=== PATIENT | female | born 1980 | race Caucasian/White ===

== ENCOUNTER 2017-10-22 09:58 | Day surgery (SDC) | payer OTHER ==
[2017-10-22] MEDS ORDERED: Marcaine 0.5% SDV 10 ML IJ ONE (09:59)
[2017-10-22] MEDS ORDERED: Xylocaine-Mpf 2% 5 Ml Vial IJ ONE (09:59)
[2017-10-22] MEDS ORDERED: Ketamine HCl 50 MG/ML IV ONE (09:59)
[2017-10-22] MEDS ORDERED: DIPRIVAN 200 MG/20 ML IV ONE (09:59)
[2017-10-22] MEDS ORDERED: Lactated Ringers 1,000 ML IV ONE (09:59)
--- NOTE | 2017-10-22 12:03 | XRAY ---
Indication: Left L4-L5 MBB. Intraoperative fluoroscopy was provided for 20 seconds. Single digital spot image submitted for interpretation demonstrates posterior spinal needle tips projecting over the expected course of the left L4 and L5 nerve roots. Correlate with intraoperative findings/report.
--- NOTE | 2017-10-22 12:05 | XRAY ---
20 seconds fluoroscopy time in surgery for left L4-5 MBB.
--- NOTE | 2017-10-23 10:03 | OP ---
DATE OF PROCEDURE: 10/22/2017 1104 SURGEON: Marian Luu D.O. PREOPERATIVE DIAGNOSIS: Degenerative lumbar spine disease, spondylosis, low back pain. POSTOPERATIVE DIAGNOSIS: Degenerative lumbar spine disease, spondylosis, low back pain. PROCEDURE PERFORMED: Left L5-L4 medial branch block under fluoroscopic guidance. DESCRIPTION OF THE PROCEDURE: The patient was taken to the operating room and placed in the prone position on the table. Skin at the injection site was prepped and draped in sterile fashion. Under fluoroscopy, bony anatomy of the targeted injection site was visualized. Induction agent was given as per anesthesia while vital signs were monitored. Local anesthetic agent of 0.5 cc of 1% lidocaine preservative free was introduced to anesthetize the skin and the subcutaneous tissue through the injection site. Under fluoroscopic guidance, a #20 gauge standard spinal needle was advanced into the target medial branch through the oblique approach. The preservative free 0.5 cc of 1% lidocaine and 0.5 cc of 0.25% Marcaine were injected into each of the targeted medial branch nerve. After the needle was being removed, the skin was cleansed with alcohol and then a bandage was applied. No complications or adverse consequences were observed. The patient was returned to the holding area until stabilized before discharge to home. After the procedure the residual pain is 2 out of 10 and there is no muscle weakness after the procedure. The patient was ambulating well. The patient will be followed up within ten days after the injection for re-evaluation.
== END 2017-10-22 11:40 | disposition home or self-care (01) ==
LOC: SDC-PAIN 09:58
PROVIDERS: ATTEND Internal Medicine
DX: M46.96 Unspecified inflammatory spondylopathy, lumbar region (principal); M51.36 Other intervertebral disc degeneration, lumbar region; Z79.891 Long term (current) use of opiate analgesic
CPT/HCPCS: 64493; 64494; 72020; 76000; 84703; J2704

== ENCOUNTER 2017-12-10 13:17 | Day surgery (SDC) | payer OTHER ==
[2017-12-10] MEDS ORDERED: DIPRIVAN 200 MG/20 ML IV ONE (13:18)
[2017-12-10] MEDS ORDERED: Xylocaine 1% Vial 30 ML PF IJ ONE (13:18)
[2017-12-10] MEDS ORDERED: Marcaine 0.5% SDV 10 ML IJ ONE (13:18)
[2017-12-10] MEDS ORDERED: Lactated Ringers 1,000 ML IV ONE (14:53)
--- NOTE | 2017-12-10 16:26 | XRAY ---
Indication: Left L3-L5 MBB. Intraoperative fluoroscopy was provided for 1 minute 50 seconds. 4 digital spot images submitted for interpretation demonstrates posterior spinal needle tips projecting over the expected course of the left L3, L4, and L5 nerve roots. Correlate with intraoperative findings/report.
--- NOTE | 2017-12-10 16:30 | XRAY ---
1 minute and 50 seconds fluoroscopy time in surgery for left L3-5 MBB.
--- NOTE | 2017-12-11 08:55 | OP ---
AMENDED REPORT: DATE OF PROCEDURE: 12/10/2017 1437 SURGEON: Marian Luu D.O. PREOPERATIVE DIAGNOSIS: Degenerative lumbar spine disease, spondylosis, low back pain. POSTOPERATIVE DIAGNOSIS: Degenerative lumbar spine disease, spondylosis, low back pain. PROCEDURE PERFORMED: Left L5, L4 and L3 medial branch blocks under fluoroscopic guidance. DESCRIPTION OF THE PROCEDURE: The patient was taken to the operating room and placed in the prone position on the table. Skin at the injection site was prepped and draped in sterile fashion. Under fluoroscopy, bony anatomy of the targeted injection site was visualized. Induction agent was given as per anesthesia while vital signs were monitored. Local anesthetic agent of 30 cc of 1% lidocaine preservative-free and the medication used for this procedure of nerve block includes 1 cc of 0.5% preservative-free Marcaine was introduced to anesthetize the skin and the subcutaneous tissue through the injection site. Under fluoroscopic guidance, a #20 gauge standard spinal needle was advanced into the target medial branch through the oblique approach. After the needle was being removed, the skin was cleansed with alcohol and then a bandage was applied. No complications or adverse consequences were observed. The patient was returned to the holding area until stabilized before discharge to home. Preoperative pain level is 5 out of 10 and postoperative pain level is 3 out of 10. The patient will be followed up within ten days after the injection for re-evaluation.
== END 2017-12-10 15:26 | disposition home or self-care (01) ==
LOC: SDC-PAIN 13:17
PROVIDERS: ATTEND Internal Medicine
DX: M46.96 Unspecified inflammatory spondylopathy, lumbar region (principal); M54.5 Low back pain; M51.36 Other intervertebral disc degeneration, lumbar region; Z79.891 Long term (current) use of opiate analgesic
CPT/HCPCS: 64493; 64494; 64495; 72020; 77003; 84703; J2001; J2704

== ENCOUNTER 2017-12-31 13:12 | Day surgery (SDC) | payer OTHER ==
[~2017-12-31 13:12] MED LIST: Lactated Ringers 1,000 ML IV ONE
[2017-12-31] MEDS ORDERED: DIPRIVAN 200 MG/20 ML IV ONE ×2 (13:13→14:58)
[2017-12-31] MEDS ORDERED: XYLOCAINE-MPF 1% 5ML SDV IJ ONE (13:13)
[2017-12-31] MEDS ORDERED: Marcaine Mpf 0.5% Vial 30 Ml IJ ONE (13:13)
--- NOTE | 2017-12-31 19:24 | XRAY ---
Exam: Single view spine from 12/31/2017. Comparison: Single view spine from 12/10/2017. Indication: Left L4-S1 RFA. Findings: 1 minute 15 seconds intraoperative fluoroscopy time was utilized with the C-arm. 3 PA images and a lateral image are submitted. The needle tips are seen in the projection of the expected left L3, L4, and L5 nerve roots on the PA images. However, on the lateral image, the needle tips appear to be posterior to this near the respective L3-L4, L4-L5, and L5-S1 facet joints. Please correlate with intraoperative findings/report.
--- NOTE | 2018-01-01 08:15 | XRAY ---
1 minute and 15 seconds fluoroscopy time in surgery for left L4-S1 RFA.
--- NOTE | 2018-01-01 09:35 | OP ---
DATE OF PROCEDURE: 12/31/2017 1439 SURGEON: Marian Luu D.O. PREOPERATIVE DIAGNOSES: Degenerative lumbosacral spine disease, spondylosis, low back pain. POSTOPERATIVE DIAGNOSES: Degenerative lumbosacral spine disease, spondylosis, low back pain. PROCEDURE PERFORMED: Left L5, L4, L3 medial branch radiofrequency ablation under fluoroscopic guidance. The medication used for this procedure is 3 cc preservative-free 0.5% Marcaine. The local anesthetic agent used is preservative-free 9 cc of 1% lidocaine. DESCRIPTION OF PROCEDURE: The patient was taken to the operating room and laid in the prone position on the table. The skin over the injection site was prepped and draped in sterile fashion. Under fluoroscopy bony anatomy of the target injection site was visualized. Induction agent was given as per anesthesia while vital signs were monitored. Local anesthetic agent was introduced to anesthetize the skin and the subcutaneous tissue through the injection site. Under fluoroscopic guidance a standard size spinal needle with cannula was advanced into the target medial branch nerve as per standard protocol. Before the radiofrequency ablation motor and sensory nerve testing was conducted as per protocol. Under the safety guidance which ensured no motor nerves being involved, radiofrequency ablation was conducted at 80 degrees C for 90 seconds as per standard protocol. After the spinal needle with the cannula was removed the skin was cleansed with alcohol and then a bandage was applied. No complications or adverse occurrences were observed. Preoperative pain level is 5 out of 10 and the postoperative pain level is 3 out of 10. The patient was returned to the holding area until stabilized before being discharged to home. The patient will be followed up within 10 days after the procedure for reevaluation.
== END 2017-12-31 15:30 | disposition home or self-care (01) ==
LOC: SDC-PAIN 13:12
PROVIDERS: ATTEND Internal Medicine
DX: M46.96 Unspecified inflammatory spondylopathy, lumbar region (principal); M54.5 Low back pain; M51.36 Other intervertebral disc degeneration, lumbar region; Z79.891 Long term (current) use of opiate analgesic
CPT/HCPCS: 64635; 64636; 72020; 77003; 84703; J2704

== ENCOUNTER 2018-08-26 10:11 | Day surgery (SDC) | payer OTHER ==
[2018-08-26] MEDS ORDERED: DIPRIVAN 200 MG/20 ML IV ONE (10:12)
[2018-08-26] MEDS ORDERED: Decadron 4 MG INJ IJ ONE (10:12)
[2018-08-26] MEDS ORDERED: Xylocaine 1% Vial 30 ML PF IJ ONE (10:12)
--- NOTE | 2018-08-26 13:53 | XRAY ---
22 seconds fluoroscopy time in surgery for bilateral piriformis muscle injection.
--- NOTE | 2018-08-26 13:54 | XRAY ---
Indication: Bilateral piriformis injection. Intraoperative fluoroscopy was provided for 22 seconds. 2 digital spot images submitted for interpretation demonstrates spinal needle tip projecting over the expected course of the left and right piriformis. Small amount of contrast injected for needle tip placement. Correlate with intraoperative findings and report.
[2018-08-26] MEDS ORDERED: Lactated Ringers 1,000 ML IV ONE (14:31)
== END 2018-08-26 12:35 | disposition home or self-care (01) ==
LOC: SDC-PAIN 10:11
PROVIDERS: ATTEND Psychiatry & Neurology Pain Medicine
DX: G57.03 Lesion of sciatic nerve, bilateral lower limbs (principal)
CPT/HCPCS: 20552; 72020; 76000; 77002; J1100; J2001; J2704; Q9966

== ENCOUNTER 2019-10-20 10:30 | Day surgery (SDC) | payer OTHER ==
[2019-10-20] MEDS ORDERED: Depo-Medrol 40 MG/ML IM ONE (10:31)
[2019-10-20] MEDS ORDERED: Xylocaine-Mpf 2% 5 Ml Vial IJ ONE (10:31)
[2019-10-20] MEDS ORDERED: DIPRIVAN 200 MG/20 ML IV ONE (11:56)
[2019-10-20] MEDS ORDERED: Ketamine HCl 50 MG/ML ONE (11:56)
--- NOTE | 2019-10-20 13:17 | XRAY ---
Indication: Bilateral L4-S1 MBB. Intraoperative fluoroscopy was provided for 13 seconds. Single digital spot image submitted for interpretation demonstrates posterior needle tips projecting over the expected course of the left and right L4-S1 nerve roots. Correlate with intraoperative findings/report.
--- NOTE | 2019-10-20 13:40 | XRAY ---
13 seconds fluoroscopy time in surgery for bilateral L4-S1 MBB.
[2019-10-20] MEDS ORDERED: Lactated Ringers 1,000 ML IV ONE (13:44)
== END 2019-10-20 12:21 | disposition home or self-care (01) ==
LOC: SDC-PAIN 10:30
PROVIDERS: ATTEND Psychiatry & Neurology Pain Medicine
DX: M47.816 Spondylosis without myelopathy or radiculopathy, lumbar region (principal); F41.8 Other specified anxiety disorders; Z79.899 Other long term (current) drug therapy
CPT/HCPCS: 64493; 64494; 72020; 77002; 84703; J1030; J2704

== ENCOUNTER 2020-01-26 10:14 | Day surgery (SDC) | payer OTHER ==
[2020-01-26] MEDS ORDERED: Decadron 4 MG INJ IV ONE (10:15)
[2020-01-26] MEDS ORDERED: Xylocaine 1% Vial 30 ML PF IJ ONE (10:15)
[2020-01-26] MEDS ORDERED: DIPRIVAN 200 MG/20 ML IV ONE (10:48)
[2020-01-26] MEDS ORDERED: Ketamine HCl 50 MG/ML ONE (10:48)
--- NOTE | 2020-01-26 12:37 | XRAY ---
25 seconds fluoroscopy time in surgery for bilateral piriformis muscle injection.
--- NOTE | 2020-01-26 12:37 | XRAY ---
Indication: Bilateral piriformis muscle injection. Intraoperative fluoroscopy was provided for 25 seconds. 2 digital spot images submitted for interpretation demonstrates posterior needle tip projecting over the expected left and right piriformis muscle. Small amount of contrast injected for both needle tip placement. Correlate with intraoperative findings/report.
[2020-01-26] MEDS ORDERED: Lactated Ringers 1,000 ML IV ONE (14:53)
== END 2020-01-26 11:18 | disposition home or self-care (01) ==
LOC: SDC-PAIN 10:14
PROVIDERS: ATTEND Psychiatry & Neurology Pain Medicine
DX: M79.18 Myalgia, other site (principal); Z79.899 Other long term (current) drug therapy
CPT/HCPCS: 20552; 72202; 77002; 84703; J1100; J2001; J2704; Q9966

== ENCOUNTER 2020-03-08 10:12 | Day surgery (SDC) | payer OTHER ==
[2020-03-08] MEDS ORDERED: Depo-Medrol 40 MG/ML IM ONE (10:13)
[2020-03-08] MEDS ORDERED: BUPIVACAINE 0.5% VIAL IJ ONE (10:13)
[2020-03-08] MEDS ORDERED: DIPRIVAN 200 MG/20 ML IV ONE (11:30)
[2020-03-08] MEDS ORDERED: Ketamine HCl 50 MG/ML ONE (11:31)
[2020-03-08] MEDS ORDERED: Lactated Ringers 1,000 ML IV ONE (14:40)
--- NOTE | 2020-03-08 16:33 | XRAY ---
Indication: Bilateral L4-S1 MBB. Intraoperative fluoroscopy was provided for 11 seconds. Single digital spot image submitted for interpretation demonstrates posterior needle tips projecting over the expected course of the left and right L4-S1 nerve roots. Correlate with intraoperative findings/report.
--- NOTE | 2020-03-08 17:01 | XRAY ---
11 seconds of fluoroscopy was used in surgery for bilateral L4-L5 and L5-S1 MBB.
== END 2020-03-08 11:55 | disposition home or self-care (01) ==
LOC: SDC-PAIN 10:12
PROVIDERS: ATTEND Psychiatry & Neurology Pain Medicine
DX: M47.816 Spondylosis without myelopathy or radiculopathy, lumbar region (principal); Z79.899 Other long term (current) drug therapy
CPT/HCPCS: 64493; 64494; 72020; 77002; 84703; J1030; J2704

== ENCOUNTER 2021-02-28 16:08 | Day surgery (SDC) | payer OTHER ==
[2021-02-28] MEDS ORDERED: Decadron 4 MG INJ IV ONE (16:09)
[2021-02-28] MEDS ORDERED: Xylocaine 1% Vial 30 ML PF IJ ONE (16:09)
[2021-02-28] MEDS ORDERED: DIPRIVAN 200 MG/20 ML IV ONE (18:05)
[2021-02-28] MEDS ORDERED: Versed 2 MG/2 ML Injection ONE (18:10)
[2021-02-28] MEDS ORDERED: Lactated Ringers 1,000 ML IV ONE (18:50)
--- NOTE | 2021-02-28 21:03 | XRAY ---
Indication: Bilateral piriformis injections. Intraoperative fluoroscopy provided for 26 seconds. 2 digital spot images submitted for interpretation demonstrates posterior needle tip projecting over the expected left and right piriformis muscles. Small amount of contrast injected for needle tip placement. Correlate with intraoperative findings/report.
--- NOTE | 2021-03-01 08:46 | XRAY ---
26 seconds of fluoroscopy was used in surgery for bilateral piriformis injections.
== END 2021-02-28 18:30 | disposition home or self-care (01) ==
LOC: SDC-PAIN 16:08
PROVIDERS: ATTEND Psychiatry & Neurology Pain Medicine
DX: M60.852 Other myositis, left thigh (principal); M60.851 Other myositis, right thigh; Z79.899 Other long term (current) drug therapy
CPT/HCPCS: 20552; 72202; 77002; 84703; J1100; J2001; J2250; J2704; Q9966

== ENCOUNTER 2022-01-02 14:14 | Day surgery (SDC) | payer OTHER ==
[2022-01-02] MEDS ORDERED: Depo-Medrol 40 MG/ML IM ONE (14:15)
[2022-01-02] MEDS ORDERED: Xylocaine 1% Vial 30 ML PF IJ ONE (14:15)
[2022-01-02] MEDS ORDERED: Lactated Ringers 1,000 ML IV ONE (14:41)
[2022-01-02] MEDS ORDERED: DIPRIVAN 200 MG/20 ML IV ONE (15:10)
--- NOTE | 2022-01-02 16:34 | XRAY ---
Indication: Bilateral piriformis injection. Intraoperative fluoroscopy provided for 25 seconds. 2 digital spot images submitted for interpretation demonstrates posterior needle tip projecting over the expected left and right piriformis muscles. Small amount of contrast injected for needle tip placement. Correlate with intraoperative findings/report.
--- NOTE | 2022-01-02 16:43 | XRAY ---
25 seconds of fluoroscopy was used in surgery for bilateral piriformis injections.
== END 2022-01-02 15:38 | disposition home or self-care (01) ==
LOC: SDC-PAIN 14:14
PROVIDERS: ATTEND Psychiatry & Neurology Pain Medicine
DX: M79.18 Myalgia, other site (principal); Z79.899 Other long term (current) drug therapy
CPT/HCPCS: 20552; 72170; 77002; 84703; J1030; J2001; J2704; Q9966

== ENCOUNTER 2022-08-28 13:39 | Day surgery (SDC) | payer OTHER ==
[2022-08-28] MEDS ORDERED: Decadron 4 MG INJ IV ONE (13:40)
[2022-08-28] MEDS ORDERED: LIDOCAINE HCL 1% 50 MG/5 ML VL PF IJ ONE (13:40)
[2022-08-28] MEDS ORDERED: Lactated Ringers 1,000 ML IV ONE (16:13)
--- NOTE | 2022-08-28 17:17 | XRAY ---
26 seconds of fluoroscopy was used in surgery for bilateral piriformis injections.
--- NOTE | 2022-08-28 17:17 | XRAY ---
Indication: Bilateral piriformis injection. Intraoperative fluoroscopy provided for 26 seconds. 4 digital spot image submitted for interpretation demonstrates posterior needle tip projecting over the expected left and right piriformis muscle. Small amount of contrast injected for needle tip placement. Correlate with intraoperative findings/report.
== END 2022-08-28 16:25 | disposition home or self-care (01) ==
LOC: SDC-PAIN 13:39
PROVIDERS: ATTEND Psychiatry & Neurology Pain Medicine
DX: M79.18 Myalgia, other site (principal); Z79.899 Other long term (current) drug therapy
CPT/HCPCS: 20552; 72170; 76942; 77002; 81025; J1100; J2001; Q9966

== ENCOUNTER 2023-06-11 12:56 | Day surgery (SDC) | payer OTHER ==
[2023-06-11] MEDS ORDERED: LIDOCAINE HCL 1% 50 MG/5 ML VL PF IJ ONE (12:57)
[2023-06-11] MEDS ORDERED: Decadron 4 MG INJ IV ONE (12:57)
[2023-06-11 13:40] LABS: HCG URINE TEST NEGATIVE (NEGATIVE)
[2023-06-11] MEDS ORDERED: Versed 2 MG/2 ML Injection ONE (15:41)
[2023-06-11] MEDS ORDERED: DIPRIVAN 200 MG/20 ML IV ONE (15:41)
--- NOTE | 2023-06-11 16:57 | XRAY ---
Indication: Bilateral piriformis injection. Intraoperative fluoroscopy provided for 17 seconds. 2 digital spot images submitted for interpretation demonstrates posterior needle tip projecting over the expected left and right piriformis. Small amount of contrast injected for needle tip placement. Correlate with intraoperative findings/report.
--- NOTE | 2023-06-11 17:06 | XRAY ---
17 seconds of fluoroscopy was used in surgery for a bilateral piriformis injection.
[2023-06-11] MEDS ORDERED: Lactated Ringers 1,000 ML IV ONE (19:04)
== END 2023-06-11 14:15 | disposition home or self-care (01) ==
LOC: SDC-PAIN 12:56
PROVIDERS: ATTEND Psychiatry & Neurology Pain Medicine
DX: M79.18 Myalgia, other site (principal); Z79.899 Other long term (current) drug therapy
CPT/HCPCS: 20552; 72170; 77002; 81025; J1100; J2001; J2250; J2704; Q9966

== ENCOUNTER 2023-12-10 12:23 | Day surgery (SDC) | payer OTHER ==
[2023-12-10] MEDS ORDERED: XYLOCAINE-MPF 1% 5ML SDV IJ ONE (12:24)
[2023-12-10] MEDS ORDERED: Decadron 4 MG INJ IV ONE (12:24)
[2023-12-10 13:10] LABS: HCG URINE TEST NEGATIVE (NEGATIVE)
[2023-12-10] MEDS ORDERED: Xylocaine-Mpf 2% 5 Ml Vial ONE (14:02)
[2023-12-10] MEDS ORDERED: DIPRIVAN 200 MG/20 ML IV ONE (14:02)
[2023-12-10] MEDS ORDERED: Lactated Ringers 1,000 ML IV ONE (14:08)
[2023-12-10] MEDS ORDERED: MORPHINE SULFATE 2 MG INJ ONE ×2 (14:19→14:36)
--- NOTE | 2023-12-10 14:58 | XRAY ---
Indication: Bilateral piriformis injection. Intraoperative fluoroscopy provided for 15 seconds. 2 digital spot images submitted for interpretation demonstrates posterior needle tips projecting over the expected left and right piriformis. Small amount of contrast injected for needle tip placement. Correlate with intraoperative findings/report.
--- NOTE | 2023-12-10 15:24 | XRAY ---
15 seconds of fluoroscopy was used in surgery for a bilateral piriformis injection.
== END 2023-12-10 14:57 | disposition home or self-care (01) ==
LOC: SDC-PAIN 12:23
PROVIDERS: ATTEND Psychiatry & Neurology Pain Medicine
DX: M79.18 Myalgia, other site (principal)
CPT/HCPCS: 20553; 72170; 77002; 81025; J1100; J2270; J2704; Q9966